=== PATIENT | male | born 2000 | race Caucasian/White ===

== ENCOUNTER → 2019-04-21 | Outpatient (CLI) | payer OTHER ==
[~2019-04-21] MED LIST: LEXAPRO20 MG PO; MELATONIN3 MG PO; OMEPRAZOLE 20 M20 M1 PO; VITAMIN D1000 UNI1 PO
== END ==
LOC: RAD 11:11
DX: R14.0 Abdominal distension (gaseous) (principal); R10.9 Unspecified abdominal pain; K59.00 Constipation, unspecified; R11.0 Nausea

== ENCOUNTER → 2019-07-01 | Outpatient (CLI) | payer OTHER ==
[~2019-07-01] MED LIST changes: +COLACE100 MG PO; +MILK OF MA400 MG/5 M PO; +MYRBETRIQ25 MG PO
== END ==
LOC: RAD 15:38
DX: M54.5 Low back pain (principal); M54.2 Cervicalgia

== ENCOUNTER → 2019-07-30 | Outpatient (CLI) | payer OTHER | LOC: MRI 14:42 | DX: M54.9 Dorsalgia, unspecified (principal) ==

== ENCOUNTER 2019-12-22 11:01 | Emergency (ER) | payer OTHER ==
[~2019-12-22] VITALS: Ht 177.8 cm; Wt 72.6 kg
[2019-12-22] MEDS ORDERED: LEXAPRO5 MG PO (11:07)
[2019-12-22] MEDS ORDERED: MELOXICAM15 MG PO (11:08)
[2019-12-22] MEDS ORDERED: NORFLEX100 MG PO (13:14)
[2019-12-22] MEDS ORDERED: PREDNISONE 20 M20 MG PO (13:14)
[2019-12-22 13:29] VITALS: BP 105/74
== END 2019-12-22 13:47 | disposition home or self-care (01) ==
LOC: ER 11:01
DX: M54.17 Radiculopathy, lumbosacral region (principal); Z88.8 Allergy status to other drugs, medicaments and biological substances; Z88.6 Allergy status to analgesic agent

== ENCOUNTER → 2019-12-23 | Outpatient (CLI) | payer OTHER ==
[~2019-12-23] MED LIST changes: +LEXAPRO5 MG PO; +MELOXICAM15 MG PO; +NORFLEX100 MG PO; +PREDNISONE 20 M20 MG PO
== END ==
LOC: MRI 13:34
DX: M89.38 Hypertrophy of bone, other site (principal)

== ENCOUNTER 2020-01-19 08:45 | Day surgery (SDC) | payer OTHER ==
[~2020-01-19] VITALS: Ht 177.8 cm; Wt 76.3 kg
[2020-01-19 09:31] VITALS: BP 119/69
[2020-01-19 13:28] VITALS: BP 119/69
--- NOTE | 2020-02-01 19:31 | O ---
[address] [address] OPERATIVE REPORT Name: RAFAEL VIGIL Room #: DEP [facility].#: [id number] Admission: 01/19/20 Attend Phys: Junaid Harrington MD Discharge: 01/19/20 Date of : 89 Report #: [id number] THIS REPORT FOR: cc: Chico Velasquez,Chico Rose,Junaid Rockwell MD ~ CC: Chico Harrington DATE OF SERVICE: 01/19/2020 SERVICE: Orthopedics. FACILITY: [facility]. SURGEON: Junaid Harrington MD WIPING CLOTH CUTTER: Rochelle Lai NP. INDICATION FOR WIPING CLOTH CUTTER: Extremity positioning, suture management, arthroscope management, assistance with the repair. PREOPERATIVE DIAGNOSES: 1. Right hip pain. 2. Right hip impingement syndrome. 3. Right hip labral tear. 4. Low back pain. POSTOPERATIVE DIAGNOSES: 1. Right hip pain. 2. Right hip impingement syndrome. 3. Right hip labral tear. 4. Low back pain. PROCEDURES: 1. Right hip arthroscopy with labral repair. 2. Right hip arthroscopic Cam osteochondroplasty. 3. Right hip arthroscopic acetabuloplasty. COMPLICATIONS: None. DRAINS: None. SPECIMENS: None. ANESTHESIA: General with regional. [address] [address] OPERATIVE REPORT Name: RAFAEL VIGIL [id number] Admission: 01/19/20 Attend Phys: Junaid Harrington MD Discharge: 01/19/20 Date of : 89 Report #: [id number] FINDINGS: 1. [place] CinchLock suture anchor x 2 for repair. 2. 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 3. Capsular repair with #2 Vicryl x 4. 4. Intact articular cartilage. INDICATIONS: The patient is a 19-year-old young man who has been having worsening progressive and persistent right groin, thigh and buttock pain. He had initially presented with low back pain and then this progressed to involve the right hip. He was having treatment with rest, activity modifications, therapy modalities and oral medicines, all without sufficient relief. He eventually elected to undergo surgical treatment after discussion with him and his parents. He gave full informed consent and wished to move forward with surgery. Risks to include but not limited to pain, bleeding, infection, injury to nerves or blood vessels, persistent pain despite surgical intervention, failure of any repairs or reconstructions, progression of preexisting chondral injury, stiffness, need for further surgery as well as complications related to anesthesia such as stroke, heart attack, pulmonary complications, thromboembolic disease and . Despite these risks, he wished to proceed. 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 He had an MRI, which was suggestive of a labral tear. PROCEDURE IN DETAIL: After right lower extremity was correctly identified in preoperative holding area as the operative extremity, the patient was taken to the operating room and general anesthesia was induced without complication. He was padded appropriately. Traction boots were applied to bilateral lower extremities. Prophylactic antibiotics were administered at appropriate time. The C-arm was brought in to map out the extent of the deformity of the femoral head and neck junction. The maximum alpha angle was approximately 65 degrees, which corresponded with the preoperative imaging. Traction was then applied to right lower extremity after it was prepped and draped in standard sterile fashion and timeout procedure had been performed. After traction was applied, C-arm was used to establish anterior and lateral viewing portal and then a mid anterior working portal was established in similar fashion arthroscopic and fluoroscopic visualization. There was some synovitis present and some erythema of the capsule, which will be the indication for the continuous passive motion machine usage postoperatively. The articular cartilage overall was healthy. There was an anterior labral tear and some instability with probing of the anterior labrum. The capsule was reflected off the dorsal side of the labrum allowing access to the sub-spine region and the acetabular rim. There was a dense prominent at the anterior inferior iliac spine. This was treated [address] [address] OPERATIVE REPORT Name: RAFAEL VIGIL Noe Room #: [place] [facility] [place]#: [id number] Admission: 01/19/20 Attend Phys: Junaid Harrington MD Discharge: 01/19/20 Date of : 99 Report #: [id number] with resection with the bur in a standard fashion. The C-arm was used to confirm the appropriate resection of the prominent sub-spine region in performing a sub-spine resection. After the sub-spine resection was completed, the bur was used to abrade the acetabular rim to prepare for labral re-fixation and then a total of 2 [place] CinchLock suture anchors were utilized for the labral repair. The first placed more anteriorly and the second placed more laterally, which provided good compression of the labrum against the acetabular rim and stabilize both the labrum and the acetabular cartilage at the chondral labral junction. The labrum was now stable to probing. Traction was let down. Hip was flexed up. Attention was turned towards the peripheral compartment. The transverse capsulotomy was extended down the neck in T shape to expose the entire Cam deformity and then the bur was used to perform a Cam osteoplasty in a typical fashion. I brought C-arm in, assessed the resection, identified some additional bone to resect and then completed the Cam osteoplasty. Instruments were then removed. C-arm was used to take final x-rays. I was happy with the appearance of the Cam resection. At this point, I then placed the instruments back in the hip, lavaged the bony debris out of the hip and then the T-shaped capsulotomy was closed with a total of four #2 Vicryl sutures. Instruments were removed. Portal sites were closed. Sterile dressing was applied. The patient was awakened from anesthesia and taken to recovery room in stable condition. No complications. All counts were recorded as correct. <ELECTRONICALLY SIGNED> By: Junaid Harrington MD 02/01/20 1931 [id number] Junaid Harrington MD /nt
== END 2020-01-19 13:55 | disposition home or self-care (01) ==
LOC: OR 08:45 → TBA 08:46 → OR 13:15
DX: M25.551 Pain in right hip (principal); M25.851 Other specified joint disorders, right hip; S73.191A Other sprain of right hip, initial encounter; F32.9 Major depressive disorder, single episode, unspecified; F41.9 Anxiety disorder, unspecified; Z98.890 Other specified postprocedural states; Z79.899 Other long term (current) drug therapy; Z88.8 Allergy status to other drugs, medicaments and biological substances; X58.XXXA Exposure to other specified factors, initial encounter; Y93.89 Activity, other specified; Y92.89 Other specified places as the place of occurrence of the external cause; Y99.8 Other external cause status
CPT/HCPCS: 50010; 50101; 50386; 51320; 51538; 52001; 52282; 52304; 52313; 56524; 56527; 57092; 57103; 62110; 62900; 70005